=== PATIENT | female | born 1970 | race Caucasian/White ===

== ENCOUNTER 2017-03-02 09:30 | Inpatient (IN) | payer OTHER ==
[~2017-03-02 09:30] MED LIST: Buffered Lidocaine 0.9% SYRIN* 5 ML/SYR SYRINGE INTRADERM ONE; DiMENhydriNATE IV* 50 MG/ML VIAL IV PUSH PRN; Famotidine IV* 10 MG/ML 2 ML (20 mg) IV ONE; PROCHLORPERAZINE INJ 5 MG/ML 2 ML VIAL IV PRN; Scopolamine 1.5 mg* PATCH TRANSDERM PRN
[2017-03-02] MEDS ORDERED: Heparin VIAL(*) 5000 UNITS/ML VIAL (FIVE THOUSAND) ONE (10:47)
[2017-03-02] MEDS ORDERED: Famotidine IV* 10 MG/ML 2 ML (20 mg) ONE (10:47)
[2017-03-02] MEDS ORDERED: Buffered Lidocaine 0.9% SYRIN* 5 ML/SYR SYRINGE ONE (10:48)
[2017-03-02] MEDS ORDERED: ceFAZolin 1 GM in Dextrose (*) 1 GM/50 ML BAG IVPB ONE (10:48)
[2017-03-02] MEDS ORDERED: ceFAZolin 2 GM PREMIX (*) 2 GM/50 ML BAG IVPB ONE (10:48)
[2017-03-02] MEDS ORDERED: Midazolam* 1 MG/ML 10 ML VIAL (10 MG) ONE (11:39)
[2017-03-02] MEDS ORDERED: fentaNYL* 50 MCG/ML 5 ML VIAL (250 MCG VIAL) ONE (11:39)
[2017-03-02] MEDS ORDERED: KETAMINE HCL* 50 MG/ML 10 ML VIAL ONE (11:39)
[2017-03-02] MEDS ORDERED: Atracurium* 10 MG/ML 10 ML VIAL ONE (11:39)
[2017-03-02] MEDS ORDERED: Bupivacaine 0.25% SDV* 30 ML ONE ×2 (11:59→13:29)
[2017-03-02] MEDS ORDERED: Clindamycin 900 MG IVPREMIX(* 900 MG/50 ML SDV IV ONE (13:05)
[2017-03-02] MEDS ORDERED: Scopolamine 1.5 mg* PATCH ONE (13:46)
[2017-03-02] MEDS ORDERED: Glycopyrrolate IV* 0.2 MG/ML 1 ML VIAL ONE (14:08)
[2017-03-02] MEDS ORDERED: Morphine INJ* 10 MG/ML 1 ML CARPUJECT ONE ×2 (14:08→16:12)
[2017-03-02] MEDS ORDERED: Ondansetron INJ* 2 MG/ML VIAL ONE (14:08)
[2017-03-02] MEDS ORDERED: Neostigmine Methylsulfate* 2 MG/2 ML SYRINGE ONE (14:08)
[2017-03-02] MEDS ORDERED: Dexamethasone IV* 4 MG/ML 1 ML (4 MG) ONE (14:08)
[2017-03-02] MEDS ORDERED: Propofol* 10 MG/ML 20 ML BTL IV PUSH ONE (14:08)
[2017-03-02] MEDS ORDERED: Lidocaine 2% PF * 5 ML VIAL ONE (14:08)
[2017-03-02] MEDS ORDERED: hydrALAZINE IV* 20 MG/ML VIAL ONE (14:35)
[2017-03-02] MEDS ORDERED: Acetaminophen ADULT LIQ* 650 MG/20.3 ML UDC PO PRN (14:44)
[2017-03-02] MEDS ORDERED: HYDROmorphone INJ* 1 MG/ML CARPUJECT SYRINGE IV PRN (14:44)
[2017-03-02] MEDS ORDERED: Ondansetron INJ* 2 MG/ML VIAL IV PRN (14:44)
[2017-03-02] MEDS ORDERED: diPHENhydraMINE IV* 50 MG/ML 1 ml VIAL (BENADRYL) SLOW PUSH PRN (14:44)
[2017-03-02] MEDS ORDERED: HYDROcodone/ACET. 7.5/325 LIQ* 15 ML UDC PO PRN (14:44)
[2017-03-02] MEDS ORDERED: Clotrimazole 1% CREAM* 45 GM TOPICAL PRN (14:49)
--- NOTE | 2017-03-02 14:54 | PN ---
Progress Note - Progress Note Date of Service: 03/02/17 Note: Brief Operative note: Pre-op: Morbid obesity, Sleep apnea, anexiety Post-op: Same, large left hepatic hemangioma Procedure: Laparoscopic sleeve gastrectomy Surgeon: Dr. Lr Brain Surgeon: RENETTA Linton Anaesthesia: ELLAA EBL: Minimal Fluids; LR 1500 cc Drains: None Catheter; None Specimen: Portion of stomach Findings: see dictated op note
[2017-03-02] MEDS ORDERED: fentaNYL* 50 MCG/ML 2 ML VIAL (100 MCG VIAL) ONE (16:12)
[2017-03-02] MEDS: Morphine INJ* 2 MG/ML 1 ML CARPUJECT IV PRN ×2 (16:13→16:29)
[2017-03-02] MEDS: fentaNYL* 50 MCG/ML 2 ML VIAL (100 MCG VIAL) IV PRN ×2 (16:14→16:30)
[2017-03-02] MEDS: Famotidine IV* 10 MG/ML 2 ML (20 mg) IV SLOW PU SCH (21:21)
[2017-03-02] MEDS: Heparin VIAL(*) 5000 UNITS/ML VIAL (FIVE THOUSAND) SUBCUT SCH (21:22)
[2017-03-03] MEDS: Heparin VIAL(*) 5000 UNITS/ML VIAL (FIVE THOUSAND) SUBCUT SCH ×2 (05:29→13:57)
[2017-03-03] MEDS: Ketorolac INJ* 30 MG/ML 1 ML VIAL IV PRN ×2 (05:34→13:57)
[2017-03-03] MEDS: Famotidine IV* 10 MG/ML 2 ML (20 mg) IV SLOW PU SCH (08:43)
[2017-03-03] MEDS ORDERED: D5W 1/2 NS KCl 20 Meq 1000 ML* 1,000 ML IV SCH (14:46)
[2017-03-03 17:06] VITALS: BP 111/66
[2017-03-05] MEDS ORDERED: Scopolamine PATCH Remove* 1 NOTE MISC PATCH OFF ONE (06:03)
== END 2017-03-03 18:00 | disposition home or self-care (01) | DRG 621 ==
LOC: AA 10:28 → SSU 17:23
PROVIDERS: ADMIT Surgery; ATTEND Surgery
PROC: 0DB64Z3 Excision of Stomach, Percutaneous Endoscopic Approach, Vertical (ICD-10-PCS; principal; 2017-03-02 12:00)
DX: E66.01 Morbid (severe) obesity due to excess calories (principal); D18.03 Hemangioma of intra-abdominal structures; E78.2 Mixed hyperlipidemia; I10 Essential (primary) hypertension; G47.33 Obstructive sleep apnea (adult) (pediatric); K21.9 Gastro-esophageal reflux disease without esophagitis; F32.9 Major depressive disorder, single episode, unspecified; F41.9 Anxiety disorder, unspecified; M06.9 Rheumatoid arthritis, unspecified; D86.9 Sarcoidosis, unspecified; Z98.51 Tubal ligation status; Z84.89 Family history of other specified conditions; Z72.89 Other problems related to lifestyle; Z68.35 Body mass index [BMI] 35.0-35.9, adult
CPT/HCPCS: 43775; 94760; A9270-GY; J0360; J0690; J1100; J1644; J1885; J2250; J2270; J2405; J2704; J3010

== ENCOUNTER 2017-10-03 13:06 | Emergency (ER) | payer OTHER ==
--- OUTSIDE RECORDS SUMMARY | 2017-10-03 13:59 | XMS REPORT | Continuity of Care Document ---
:1970 Author Organization [facility] Address [address], [place] [id number] Phone Care Team Providers Name Role Phone Dora Cat Unavailable Unavailable Antonella Glez Unavailable Unavailable Allergies, Adverse Reactions, Alerts Substance Reaction Severity Status No Known Drug Allergies Unknown Active Medications Medication Instructions Dosage Effective Dates Status Comments (start - stop) methotrexate sodium take 5 Tablet by oral 12.5 MG - Active 2.5 mg tablet route every week Problems Condition Effective Dates (start - stop) Clinical Status Other terminal superintendent (current) drug therapy Sarcoidosis, unspecified Other skilled nursing (current) drug therapy Sarcoidosis, unspecified Other skilled nursing (current) drug therapy Sarcoidosis, unspecified Sarcoidosis, unspecified Other terminal superintendent (current) drug therapy Other skilled nursing (current) drug therapy Other skilled nursing (current) drug therapy Sarcoidosis, unspecified Other skilled nursing (current) drug therapy Sarcoidosis, unspecified Other skilled nursing (current) drug therapy Sarcoidosis, unspecified Other terminal superintendent (current) drug therapy Other terminal superintendent (current) drug therapy Sarcoidosis, unspecified Other skilled nursing (current) drug therapy Sarcoidosis, unspecified Other terminal superintendent (current) drug therapy Sarcoidosis, unspecified High risk drug monitoring status - Active Clinical finding - Active Sarcoidosis - Active Edema - Active Arthropathy - Active Multiple stiff joints - Active Procedures Procedure Date Unknown Results Test Name Date and Time Measure Units Reference Range Abnormal Flag Comments Unknown Advance Directives Directive Yes / No Effective Date File Name Unknown Encounters Encounter Practice Location Reason(s) Diagnoses Date Provider Care Team Description For Visit Members Arthritis Arthritis [facility] 6-201 [facility], 5794 PLLC 5794 [facility] [place], [id number], [id number], [place]. tel:+ tel: [phone] Arthritis Arthritis Other long Vishnu-2 [facility] term (current) PA-C Provider: Antione Talbot drug 8 [facility]. [facility], 5794 PLLC therapySarcoid [address] [place], [place] [facility], [place] [address] [place], [place], [address] [place], [facility], [id number], [id number], [place], [address]. tel: tel: tel:[phone] lting Provider: Pretty Penny MD, [address] [place], [address]. tel:[phone] ring Provider: Antonella Avila, [place], [address]. tel:[phone] Arthritis Arthritis Sarcoidosis, Mar-2 [facility] unspecifiedOth PA-C Provider: Antione Talbot er skilled nursing 8 [facility]. [facility], 5794 PLLC (current) drug [address] [place], [place] [facility] [place] [address] [place], [place], [address] [place], [place], [facility], [id number], [place], [address]. tel:+[phone] tel:+[phone] tel:[phone] lting Provider: Pretty Penny MD, [address] [place], [address]. tel:[phone] ring Provider: Antonella Avila, [place], [address]. tel:[phone] Arthritis Arthritis Sarcoidosis, Dec-1 [facility] [employer] [facility] unspecifiedOth 5201 Brian. Provider: Associates Associates er skilled nursing 7 5794 [facility], 5794 PLLC (current) drug [facility] [place], [facility] therapy [place], [address] [place], [place], [address] [place], [place], [facility], [id number], [facility], [id number], [place]. [facility] tel:+[phone] [place], [address]. tel:[phone] tel:[phone] lting Provider: Pretty Penny MD, [address] [place], [address]. tel:[phone] Provider: Antonella Avila, [facility], [place], [address]. tel:[phone] Arthritis Arthritis Other long Sep-2 [facility] term (current) 8201 PA-C [facility] drug therapy 7 [facility]. [facility], 5794 PLLC 5794 [facility], [place], [place], [id number], [id number], [place]. tel:[phone] tel:[phone] Arthritis Arthritis Other long Aug-3 [facility] term (current) 0-201 PA-C Provider: Associates [facility] drug 7 [facility]. [facility], 5794 PLLC therapySarcoid [address] [place], [facility] osis, [facility] [address] [place], unspecified [place], [address] [place], [facility], [id number], [id number], [place], [address]. tel:+[phone] tel:+[phone] tel:[phone] lting Provider: Pretty Penny MD, [address] [place], [address]. tel:[phone] Provider: Antonella Avila, [place], [address]. tel:[phone] Arthritis Arthritis Other long Apr-0 [facility] term (current) 4 PA-C Provider: Antione Talbot drug 7 [facility]. [facility], 5794 PLLC therapySarcoid [address] [place], [facility], [facility] [address] [place] unspecified [place], [place], [place], [place], [place], [id number], [id number], [place], [address]. [place]. tel:[phone] tel:+[phone] tel:[phone] [phone] lting Provider: Pretty Penny MD, [address] [place], [address]. tel:[phone] ring Provider: Antonella Avila, [place], [address]. tel:[phone] Arthritis Arthritis Sarcoidosis, Mar- [facility] unspecifiedOth 8 PA-C Provider: Antione Talbot er terminal superintendent 7 [facility]. [facility], 5794 PLLC (current) drug [address] [place], [facility] therapy [facility] [address] [place], [place], [place], [place], [place], [place], [place], [id number], [id number], [place], [address]. [place]. tel:[phone] tel:+[phone] tel:[phone] [phone] lting Provider: Pretty Penny MD, [address] [place], [address]. tel:[phone] ring Provider: Antonella Avila, [place], [address]. tel:[phone] Arthritis Arthritis Other long Oct- [facility] term (current) 0-201 PA-C Antione Talbot drug therapy 6 [facility], 5794 PLLC 5794 [facility] [place], [place], [place], [id number], [id number], [place] tel: tel:[phone] Arthritis Arthritis Other long Dec-0 [employer] [facility] term (current) PA-C Provider: Antione ramos 6 [facility]. [facility], 5794 PLLC therapySarcoid [address] [place], [facility], [facility] [address] [place], unspecified [place], [place], [place], [id number], [id number], [place], [address]. [place]. tel:[phone] tel:+ tel:[phone] [phone] ing Provider: Pretty Penny MD, [address] [place], [address]. tel:[phone] ring Provider: Antonella Avila, [place], [address]. tel:[phone] Arthritis Arthritis Sarcoidosis, [facility] unspecifiedOth PA-C Provider: Antione Talbot terminal superintendent 6 [facility]. [facility]ella PLL[facility], 5794 PLLC (current) drug 5794 [employer], [facility] therapy [facility] [place], [place], Medical, [place], [place], [place], [address]. [id number], [id number], tel:[phone] [place]. [address] tel:+[phone] tel:[phone] Arthritis Arthritis Other long July- [employer] [facility] term (current) PA-C Provider: Antione ramos 6 [facility]. [facility], 5794 PLLC therapySarcoid [address] [place], [place] [facility], [place] [address] [place], unspecified [place], [place], [place], [place], [place], [place], [id number], [id number], [place], [address]. [place]. tel:[phone] tel:+[phone] tel:[phone] [phone] lting Provider: Pretty Penny MD, [address] [place], [address]. tel:[phone] ring Provider: Antonella Avila, [place], [address]. tel:[phone] Arthritis Arthritis Other long Apr- [facility] term (current) PA-C Provider: Antione Larry. [facility], 5794 PLLC therapySarcoid [address] [place], [facility] osis, [facility] [address] [place], unspecified [place], [place], [place], [place], [place], [place], [id number], [id number], [place], [address]. [place]. tel:[phone] tel:+[phone] tel:[phone] [phone] lting Provider: Pretty Penny MD, [address] [place], [address]. tel:[phone] ring Provider: Antonella Avila, [place], [address]. tel:[phone] Arthritis Arthritis [facility] AREA LOSS PREVENTION MANAGER-C Provider: Antione Ramey 310 [facility], [address] [place] [facility] [address], [address] [place], [place], [place], [place], [place], [place], [id number], [place], [id number], [place], [address]. [place] tel:[phone] tel:[phone] tel:[phone] [id number] [id number] ring Provider: Antonella Avila, [facility], [place], [address]. tel:[phone] Arthritis Arthritis [facility] AREA LOSS PREVENTION MANAGER-C Provider: [facility] 3 Mariela. 310 [facility], 5[address] PLL[address] [facility], [facility], [address] [place], [place], [place], [place], [place], [place], [id number], [place], [id number], [place], [address]. [place] tel:[phone] tel:[phone] tel:[phone] ring Provider: Antonella Avila, [facility], [place], [address]. tel:[phone] Arthritis Arthritis Joe FORREST Referring [facility] Brian. Provider: Antione Talbot 2 5794 Antonella [facility], 5794 [facility], [facility], [facility], [facility], [place], [place], [place], [place], [id number], [place], [address]. [id number], . tel:[phone] tel:[phone] tel:[phone] Family History Family Member Diagnosis Age At Onset Status Paternal grandmother Rheumatoid arthritis N Immunizations Vaccine Date Status Comments Never had Zoster completed - Completed reason: New Refused Flu vaccine completed - Completed reason: New Never had a PPV23 completed - Completed reason: New Payers Payer name Insurance type Covered green party ID Authorization(s) [employer] No Referral Required CI [id number] Social History Type Description Quantity Date Captured Alcohol Use Details No Caffeine Use Details No Tobacco Use Status No Smoking Status No Vital Signs Date / Height Weight BMI Pulse Blood Temperature Respiratory Body Head BMI Time: Rate Pressure Rate Surface Circumference percentile Area Unknown Chief Complaint And Reason For Visit Unknown Chief Complaint And Reason For Visit Reason For Referral Reason For Referral Unknown Plan Of Care Date Type Action Status Appointment Tiffani Whitley BOOKED Date Type Problem Goal Intervention Status Start Date Unknown. History Of Present Illness Encounter Date Complaint History Of Present Illness This patient has no known history of present illness Functional Status Encounter Date Functional Assessment Cognitive Assessment Unknown Medications Administered Medication Instructions Dosage Effective Dates (start - stop) Status Comments Drug Treatment Unknown Instructions Date Instruction Additional Information Risks/benefits of medications reviewed Labs ordered to check disease activity. Labs ordered to check blood counts, liver and kidney functions to monitor safety of medication. Discussed / Reviewed Labs hold medication and call if any side effect develops continue same medication plan call if symptoms worsen Risks/benefits of medications reviewed Labs ordered to check disease activity. Labs ordered to check blood counts, liver and kidney functions to monitor safety of medication. Discussed / Reviewed Labs hold medication and call if any side effect develops continue same medication plan call if symptoms worsen Risks/benefits of medications reviewed Labs ordered to check disease activity. Labs ordered to check blood counts, liver and kidney functions to monitor safety of medication. Discussed / Reviewed Labs call if symptoms worsen Risks/benefits of medications reviewed Labs ordered to check disease activity. Labs ordered to check blood counts, liver and kidney functions to monitor safety of medication. Discussed / Reviewed Labs hold medication and call if any side effect develops continue same medication plan call if symptoms worsen Risks/benefits of medications reviewed Labs ordered to check disease activity. Labs ordered to check blood counts, liver and kidney functions to monitor safety of medication. Discussed / Reviewed Labs call if symptoms worsen Patient plan printed and given along with recommendations call if symptoms worsen resume mtx 5 weekly 2 weeks after surgery Risks/benefits of medications reviewed Discussed / Reviewed Labs Risks/benefits of medications reviewed Labs ordered to check disease activity. Labs ordered to check blood counts, liver and kidney functions to monitor safety of medication. Discussed / Reviewed Labs Risks/benefits of medications reviewed Labs ordered to check disease activity. Labs ordered to check blood counts, liver and kidney functions to monitor safety of medication. Discussed / Reviewed Labs hold medication and call if any side effect develops continue same medication plan call if symptoms worsen Labs ordered to check disease activity. Labs ordered to check blood counts, liver and kidney functions to monitor safety of medication. Discussed / Reviewed Labs hold medication and call if any side effect develops continue same medication plan call if symptoms worsen Risks/benefits of medications reviewed Labs ordered to check disease activity. Labs ordered to check blood counts, liver and kidney functions to monitor safety of medication. Discussed / Reviewed Labs Risks/benefits of medications reviewed Diagnostic studies discussed/reviewed: Labs Labs ordered to check disease activity. Labs ordered to check blood counts, liver and kidney functions to monitor safety of medication. Discussed / Reviewed Labs hold medication and call if any side effect develops call if symptoms worsen
--- OUTSIDE RECORDS SUMMARY | 2017-10-03 13:59 | XMS REPORT | Continuity of Care Document ---
:1970 Author Organization [facility] Address [address], [place] [id number] Phone Care Team Providers Name Role Phone [...] Effective Dates (start - stop) Clinical Status Sarcoidosis, unspecified Other remote computer terminal operator (current) drug therapy Sarcoidosis, unspecified Other remote computer terminal operator (current) drug therapy Sarcoidosis, unspecified Other remote computer terminal operator (current) drug therapy Sarcoidosis, unspecified Other remote computer terminal operator (current) drug therapy Sarcoidosis, unspecified Other custodial (current) drug therapy Other remote computer terminal operator (current) drug therapy Sarcoidosis, unspecified Other remote computer terminal operator (current) drug therapy Sarcoidosis, unspecified Other remote computer terminal operator (current) drug therapy Sarcoidosis, unspecified Other custodial (current) drug therapy Sarcoidosis, unspecified Other custodial (current) drug therapy Sarcoidosis, unspecified 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 High risk drug monitoring status - Active Clinical finding - Active Sarcoidosis - Active Edema - Active Arthropathy - Active Multiple stiff joints - Active Procedures Procedure Date ROUTINE VENIPUNCTURE COMPLETE CBC W/AUTO DIFF WBC RBC SED RATE, AUTOMATED C-REACTIVE PROTEIN ASSAY OF CALCIUM ASSAY OF VITAMIN D OFFICE/OUTPATIENT VISIT, EST Results Test Name Date and Time Measure Units Reference Range Abnormal Flag Comments Panel Description: CBC WBC 12:29:00 6.5 10 3.7-10.1 RBC 12:29:00 4.50 10 3.50-5.50 HGB 12:29:00 12.7 g/dL 12.0-16.0 HCT 12:29:00 41.1 % 36.0-48.0 MCV 12:29:00 91.3 fL 80.0-100.0 MCH 12:29:00 28.3 pg 26.0-34.0 MCHC 12:29:00 31.0 g/dL 31.0-37.0 RDW 12:29:00 13.5 % 10.0-15.0 PLATELETS 12:29:00 315 10 150-500 MPV 12:29:00 9.1 fL 6.0-10.0 HASMUKH# 12:29:00 4.35 10 2.10-8.00 LYM# 12:29:00 1.54 10 1.00-5.00 MONO# 12:29:00 0.44 10 0.10-1.00 EOS# 12:29:00 0.1 10 0.0-0.5 BASO# 12:29:00 0.1 10 0.0-0.2 HASMUKH% 12:29:00 67.4 % 50.0-80.0 LYM% 12:29:00 23.9 % 25.0-50.0 L MONO% 12:29:00 6.8 % 2.0-10.0 EOS% 12:29:00 0.8 % 0.0-5.0 BASO% 12:29:00 1.1 % 0.0-4.0 Panel Description: Vitamin D, 25-OH Vitamin D,25OH 12:29:00 37.7 ng/mL 30.0-100.0 Panel Description: ESR ESR 12:29:00 5 mm/Hr 0-20 Panel Description: CALCIUM CA 12:29:00 9.2 mg/dL 8.0-10.3 Panel Description: CRP CRP 12:29:00 <0.2 mg/dL 0.2-1.0 L Advance Directives Directive Yes / No Effective Date File Name Unknown Encounters Encounter Practice Location Reason(s) Diagnoses Date Provider Care Team Description For Visit Members OFFICE/OUTPA Arthritis Arthritis Sarcoidosis Sarcoidosis, [facility] Consulting TIENT VISIT, [facility] (chief unspecifiedOt PA-C Provider: NORBERTO Talbot complaint) her remote computer terminal operator [facility], [facility] (current) 5794 [facility] drug [address], [place], [facility] [id number], [id number], [facility]. [facility], tel:[phone] tel:[phone] [place], [address] [place], [address]. tel:[phone] sullo Provider: Pretty Penny MD, [address] [place], [address]. tel:[phone] erring Provider: Antonella Avila, [facility], [place], [address]. tel:[phone] Arthritis Arthritis Sarcoidosis, [facility] Consulting [facility] unspecifiedOt PA-C Provider: Antione Talbot her custodial 8 [facility] (current) 5794 [facility] drug [address], [place], [facility], [place], [facility] [id number], [id number], [facility], tel:[phone] tel:[phone] [place], 991385 [address] [place], [address]. tel:[phone] sulting Provider: Pretty Penny MD, [address], [place], [address]. tel:[phone] erring Provider: Antonella Avila, [place], [address]. tel:[phone] Arthritis Arthritis Sarcoidosis, Joe FORREST Consulting [facility] unspecifiedOt 5 Brian. Provider: Antione Talbot her custodial 7 [facility] (current) [facility] drug therapy [place], [address] [place] [address], [place], [facility], [place], [place], [id number], [place] [id number], [place]. Eye [place] tel: Center, tel: [phone] [place], 643030 [place], [address]. tel:[phone] [facility] Provider: Pretty Penny MD, [address] [place], [address]. tel:[phone] erring Provider: Antonella Avila, [place], [address]. tel:[phone] Arthritis Arthritis Other long Sep- [facility] 8 [facility] (current) [facility], [facility] drug therapy 5794 [facility], [place], [place], [place], [place], [id number], [id number], [place]. tel: tel:[phone] Arthritis Arthritis Sarcoidosis, [facility] Consulting [facility] unspecifiedOt 0201 PA-C Provider: Antione Talbot her custodial 7 [facility], 5[facility] (current) 5794 [facility], [facility] drug therapy [facility] [address] [place], [place], [facility] [place], [place], [place] [id number], [id number], Eye [place]. Center, tel: tel:[phone] [place], [address] [place], [address]. tel:[phone] sulting Provider: Pretty Penny MD, [address] [place], [address]. tel:[phone] erring Provider: Antonella Avila, [facility], [place], [address]. tel:[phone] Arthritis Arthritis Sarcoidosis, Jun- [facility] unspecifiedOt PA-C Provider: Associates Antione her custodial 7 [facility], 5[facility] (current) 5794 [facility] drug therapy [address], [place], [facility], [place], , [place], [place], [place], [id number], [id number], [place], [address]. [place]. tel:[phone] tel:[phone] tel:[phone] [phone] sulting Provider: Pretty Penny MD, [address] [place], [address]. tel:[phone] erring Provider: Antonella Avila, [place], [address]. tel:[phone] Arthritis Arthritis Sarcoidosis, [facility] unspecifiedOt PA-C Provider: Antione Talbot her custodial 7 [facility], 5[facility] (current) 5794 [facility] drug therapy [address], [place], [facility], [place], , [place], [place], [place], [id number], [id number], [place], [address]. [place]. tel:[phone] tel:[phone] tel:[phone] [phone] sulting Provider: Pretty Penny MD, [address] [place], [address]. tel:[phone] erring Provider: [place], [address]. tel:[phone] Arthritis Arthritis Other long [facility] term 0- [facility] (current) 6 [facility], 5[facility] drug therapy 5794 [facility], [place], [place], [place], [place], [id number], [id number], [place]. tel:+ tel:[phone] Arthritis Arthritis Sarcoidosis, [facility] unspecifiedOt PA-C Provider: Antione Talbot her remote computer terminal operator 6 [facility], 5794 PLL[facility] (current) 5794 [facility], [facility] drug therapy [facility] [address] [place], [place], [facility] [place], [place], , [place], [place], [place], [id number], [id number], [place], [address]. [place]. tel:+ tel:+ tel:[phone] [phone] sulting Provider: Pretty Penny MD, [address] [facility] [address] [place], [address]. tel:[phone] erring Provider: Antonella Avila, [facility], [place], [address]. tel:[phone] Arthritis Arthritis Sarcoidosis, [facility] unspecifiedOt PA-C Provider: Antione Talbot her custodial 6 [facility], 5794 PLL[facility] (current) 5794 [facility], [facility] drug therapy [facility], [place], [facility], [place], [place], [place], [place], [place], [address]. [id number], [id number], tel:[phone] [place]. [id number] tel:[phone] tel:[phone] Arthritis Arthritis Sarcoidosis, [facility] unspecifiedOt PA-C Provider: Antione Talbot her remote computer terminal operator 6 [facility], 5794 PLLC (current) 5794 [facility], [facility] drug therapy [address], [place], [facility], [place], , [place], [place], [place], [id number], [id number], [place], [address]. [place]. tel:[phone] tel:+[phone] tel:[phone] [phone] sulting Provider: Pretty Penny MD, [address] [place], [address]. tel:[phone] erring Provider: Antonella Avila, [place], [address]. tel:[phone] Arthritis Arthritis Sarcoidosis, [facility] unspecifiedOt PA-C Provider: Associates Antione her custodial 6 [facility], 5794 PLLC (current) 5794 [facility] drug therapy [address], [place], [facility], [place], , [place], [place], [place], [id number], [id number], [place], [address]. [place]. tel:[phone] tel:+[phone] tel:[phone] [phone] sulting Provider: Pretty Penny MD, [address] [place], [address]. tel:[phone] erring Provider: [place], [address]. tel:[phone] Arthritis Arthritis Feb-0 [facility] URBAN FORESTER-C Provider: Associates Antione 3 Mariela. [address] [facility], 5[address] [facility] [address] [facility], [facility] [address], [address] [place] [address], [place], [facility], [place], , [place], [id number], [place], [id number], [place], [address]. [place] tel:+[phone] tel:+[phone] tel:[phone] [id number] erring Provider: [place], [address]. tel:[phone] Arthritis Arthritis Zoila [facility] URBAN FORESTER-C Provider: Antione Talbot 3 Mariela. [address] [facility], 5[address] [facility] [facility], [facility], [address] [place], [place], [place], [place], [place], [place], [id number], [place], [id number], . [place], [address]. [place] tel:[phone] tel:[phone] tel:[phone] [id number] erring Provider: Antonella Avila, [place], [address]. tel:[phone] Arthritis Arthritis Joe FORREST [facility] Brian. Provider: Antione Talbot 2 5794 Antonella [facility], 5794 [facility], [facility], [place], [place], [place], [place], [id number], [place], [address]. [id number], . tel:[phone] tel:[phone] tel:[phone] Family History Family Member Diagnosis Age At Onset Status Paternal grandmother Rheumatoid arthritis N Immunizations Vaccine Date Status Comments Never had Zoster completed - Completed reason: New Refused Flu vaccine completed - Completed reason: New Never had a PPV23 completed - Completed reason: New Payers Payer name Insurance type Covered libertarian ID Authorization(s) [employer] No Referral Required CI [id number] Social History Type Description Quantity Date Captured Alcohol Use Details hard liquor 3 drinks weekly Caffeine Use Details coffee 1 cup per day Tobacco Use Status No Smoking Status Never smoker Vital Signs Date / Height Weight BMI Pulse Blood Temperature Respiratory Body Head BMI Time: Rate Pressure Rate Surface Circumference percentile Area 160.02 162.00 28.7 118/64 -2018/ cm lbs 0 mm[Hg] 12:09: kg/m 00 eter (2) Chief Complaint And Reason For Visit Most recent encounter only, dated '09/01/2017 12:00'. Sarcoidosis (chief complaint). Description: The pain severity is 5/10. Patient is experiencing generalized morning stiffness for 1 Hour. Patient denies having diarrhea, infection, loss of appetite, fever, fatigue, rash, Raynaud's, oral ulcers (mouth sores), weight loss, pleuritic pain and shortness of breath ( dyspnea). Reason For Referral Reason For Referral Unknown Plan Of Care Date Type Action Status Appointment Tiffani Whitley BOOKED Date Type Problem Goal Intervention Status Start Date Unknown. History Of Present Illness Encounter Date Complaint History Of Present Illness Sarcoidosis The pain severity is 5/10. Patient is experiencing generalized morning stiffness for 1 Hour. Patient denies having diarrhea, infection, loss of appetite, fever, fatigue, rash, Raynaud's, oral ulcers (mouth sores), weight loss, pleuritic pain and shortness of breath (dyspnea). Functional Status Encounter Date Functional Assessment Cognitive Assessment N/A Orientation - Oriented to time, place, person, situation. Medications Administered Medication Instructions Dosage Effective Dates [...] same medication plan call if symptoms worsen Patient plan printed [...] if symptoms worsen Risks/benefits of medications reviewed Diagnostic studies discussed/reviewed: Labs Labs ordered to check disease activity. Labs ordered to check blood counts, liver and kidney functions to monitor safety of medication. Discussed / Reviewed Labs hold medication and call if any side effect develops call if symptoms worsen Risks/benefits of medications [...]
[2017-10-03 14:05] VITALS: BP 116/75
--- NOTE | 2017-10-03 14:23 | UC ---
Complaint Female HPI - HPI Summary HPI Summary: painful burning and pressure with urination began last night---no fever or back pain---last UTI was in June bacteria was resistant to Macrobid - History Of Current Complaint Chief Complaint: UCGU Stated Complaint: URINARY Time Seen by Provider: 10/03/17 13:57 Hx Obtained From: Patient Hx Last Menstrual Period: 09/23/17 ?: No Onset/Duration: Sudden Onset, Lasting Days - 1, Still Present Timing: Constant Pain Intensity: 10 Pain Scale Used: 0-10 Numeric Character: Burning Aggravating Factor(s): Urination Alleviating Factor(s): Nothing Associated Signs And Symptoms: Positive: Negative - Allergies/Home Medications Allergies/Adverse Reactions: Allergies Allergy/AdvReac Type Severity Reaction Status Date / Time No Known Allergies Allergy Verified 10/03/17 14:02 Home Medications: Home Medications Biotin 3 tab PO DAILY 10/03/17 [History Confirmed 10/03/17] Multivitamin [Multiple Vitamins] 1 tab PO DAILY 10/03/17 [History Confirmed ] PMH/Surg Hx/FS Hx/Imm Hx Previously Healthy: Yes - Surgical History Surgical History: Yes Surgery Procedure, Year, and Place: tubligation. 03/02/17 GASTRIC SLEEVE. 1989 - APPENDECTOMY - Family History Known Family History: Positive: None - Social History Occupation: Employed Full-time Lives: With Family Alcohol Use: Daily Alcohol Amount: 1 drink daily Substance Use Type: None Smoking Status (MU): Never Smoked Tobacco - Immunization History Most Recent Influenza Vaccination: never Most Recent Pneumonia Vaccination: never Review of Systems Constitutional: Negative Skin: Negative Eyes: Negative ENT: Negative Respiratory: Negative Cardiovascular: Negative Gastrointestinal: Negative Genitourinary: Dysuria, Hematuria, Frequency, Urgency Motor: Negative Neurovascular: Negative Musculoskeletal: Negative Neurological: Negative Psychological: Negative Is Patient Immunocompromised?: No All Other Systems Reviewed And Are Negative: Yes Physical Exam Triage Information Reviewed: Yes Appearance: Well-Appearing, No Pain Distress, Well-Nourished Vital Signs: Initial Vital Signs Temp 98.6 F 10/03/17 13:58 Pulse 70 10/03/17 13:58 Resp 14 10/03/17 13:58 BP 116/75 10/03/17 13:58 Pulse Ox 100 10/03/17 13:58 Vital Signs Reviewed: Yes Eye Exam: Normal Eyes: Positive: Conjunctiva Clear ENT Exam: Normal ENT: Positive: Normal ENT inspection, Hearing grossly normal. Negative: Trismus , Muffled voice, Hoarse voice Dental Exam: Normal Neck exam: Normal Neck: Positive: Supple, Nontender Respiratory Exam: Normal Respiratory: Positive: Chest non-tender, No respiratory distress, No accessory muscle use Cardiovascular Exam: Normal Cardiovascular: Positive: RRR, No Murmur, Pulses Normal, Brisk Capillary Refill Abdominal Exam: Normal Abdomen Description: Negative: CVA Tenderness (R), CVA Tenderness (L), Distended , Guarding Bowel Sounds: Positive: Present Musculoskeletal Exam: Normal Musculoskeletal: Positive: Strength Intact, ROM Intact, No Edema Neurological Exam: Normal Neurological: Positive: Alert, Muscle Tone Normal Psychological Exam: Normal Skin Exam: Normal Diagnostics - Laboratory Diagnostic Studies Completed/Ordered: ua + for nitrites, blood, leukoesterace Complaint Female Dx - Course Course Of Treatment: Amoxicillin, Pyridium, increase fluids, tylenol, ibuprofen follow with pcp in 2 weeks - Differential Dx/Diagnosis Provider Diagnoses: UTI Discharge - Sign-Out/Discharge Documenting (check all that apply): Patient Departure - Discharge Plan Condition: Stable Disposition: HOME Prescriptions: Amoxicillin PO (*) [Amoxicillin 875 MG (*)] 875 mg PO BID #20 tab Phenazopyridine TAB* [Pyridium 100 mg TAB*] 100 mg PO TID PRN #9 tab PRN Reason: urinary pain and burning Patient Education Materials: Phenazopyridine (By mouth), Urinary Tract Infection in Women (ED) Referrals: Dora Alvarez PA [Primary Care Provider] - 2 Weeks - Billing Disposition and Condition Condition: STABLE Disposition: Home
== END 2017-10-03 14:32 | disposition home or self-care (01) ==
LOC: UCCORT 13:06
DX: N39.0 Urinary tract infection, site not specified (principal)
CPT/HCPCS: 81003; 84702; 87086; 99212; G0463

== ENCOUNTER 2018-02-28 07:01 | Day surgery (SDC) | payer OTHER ==
[~2018-02-28 07:01] MED LIST changes: +Dexamethasone IV* 4 MG/ML 1 ML (4 MG) IV SLOW PU ONE; -DiMENhydriNATE IV* 50 MG/ML VIAL IV PUSH PRN; +Lactated Ringers 1000 ML Bag* 1,000 ML IV SCH; -PROCHLORPERAZINE INJ 5 MG/ML 2 ML VIAL IV PRN; -Scopolamine 1.5 mg* PATCH TRANSDERM PRN
[2018-02-28] MEDS ORDERED: ceFAZolin 2 GM PREMIX in ORs 2 GM/50 ML BAG IVPB ONE (08:08)
[2018-02-28] MEDS ORDERED: Dexamethasone IV* 4 MG/ML 1 ML (4 MG) ONE (08:08)
[2018-02-28] MEDS ORDERED: Famotidine IV* 10 MG/ML 2 ML (20 mg) ONE (08:08)
[2018-02-28] MEDS ORDERED: fentaNYL* 50 MCG/ML 2 ML VIAL (100 MCG VIAL) ONE (08:58)
[2018-02-28] MEDS ORDERED: Midazolam* 1 MG/ML 5 ML VIAL (5 MG) ONE (08:58)
[2018-02-28] MEDS ORDERED: Ondansetron INJ* 2 MG/ML VIAL ONE (09:00)
[2018-02-28] MEDS ORDERED: Ketorolac INJ* 30 MG/ML 1 ML VIAL ONE (09:00)
[2018-02-28] MEDS ORDERED: Propofol* 10 MG/ML 20 ML BTL ONE (09:00)
[2018-02-28] MEDS ORDERED: oxyCODONE/Acetamin 5/325 MG* TAB PO PRN (09:22)
[2018-02-28] MEDS ORDERED: Naloxone* 0.4 MG/ML 1 ML VIAL IV PRN (09:22)
[2018-02-28] MEDS ORDERED: Ondansetron INJ* 2 MG/ML VIAL IV PRN (09:22)
[2018-02-28] MEDS ORDERED: Lidocain 1% EPI 1:100,000 * 30 ML MDV ONE (09:30)
[2018-02-28] MEDS ORDERED: Bupivacaine 0.25% SDV PF* 10 ML VIAL INJ ONE (09:31)
[2018-02-28 10:59] VITALS: BP 109/74
== END 2018-02-28 11:03 | disposition home or self-care (01) ==
LOC: OR 07:01
PROVIDERS: ATTEND Plastic Surgery
DX: D17.0 Benign lipomatous neoplasm of skin and subcutaneous tissue of head, face and neck (principal); I10 Essential (primary) hypertension; M06.9 Rheumatoid arthritis, unspecified; D86.9 Sarcoidosis, unspecified
CPT/HCPCS: 88304; J0690; J1100; J1885; J2250; J2405; J2704; J3010; J3490